=== PATIENT | female | born 1940 | race Two or more races ===

== ENCOUNTER 2020-06-24 07:14 | Outpatient (CLI) | payer OTHER | END 2020-06-24 07:17 | disposition home or self-care (01) | LOC: TOM 07:14 → EDBD 07:14 → TOM 07:15 | PROVIDERS: ATTEND Internal Medicine Cardiovascular Disease | DX: R51 Headache (principal) ==

== ENCOUNTER 2021-07-04 08:00 | Outpatient (CLI) | payer OTHER | END 2021-07-04 08:30 | disposition home or self-care (01) | LOC: PPH VACUNA 08:00 | DX: Z23 Encounter for immunization (principal) ==

== ENCOUNTER 2021-07-25 08:00 | Outpatient (CLI) | payer OTHER | END 2021-07-25 08:15 | disposition home or self-care (01) | LOC: PPH VACUNA 08:00 | PROVIDERS: ATTEND Emergency Medicine Pediatric Emergency Medicine | DX: Z23 Encounter for immunization (principal) ==

== ENCOUNTER → 2022-04-03 | Outpatient (CLI) | payer OTHER | END | disposition home or self-care (01) | LOC: PPH VACUNA 08:00 | PROVIDERS: ATTEND Emergency Medicine Pediatric Emergency Medicine | DX: Z23 Encounter for immunization (principal) ==